=== PATIENT | male | born 1955 | race Caucasian/White ===

== ENCOUNTER → 2017-01-06 | Outpatient (CLI) | payer BC ==
--- NOTE | 2017-01-06 14:07 | Diagnostic Imaging Report ---
EXAMINATION: Bilateral 3 views of the knee. INDICATION: Knee pain. FINDINGS: There is severe joint space narrowing in the medial compartment bilaterally with associated prominent tricompartmental osteophytes. There is only mild joint space narrowing of the patellofemoral compartment. No significant narrowing of the lateral compartment is seen on either side. No acute fracture. No suprapatellar effusion on either side is seen. IMPRESSION: Bilateral moderate knee osteoarthritis, worse in the medial compartment on both sides. Dictated by: Dictated on workstation # [id number]
== END ==
LOC: RAD 10:26
PROVIDERS: ATTEND Internal Medicine
DX: M25.561 Pain in right knee (principal); M25.562 Pain in left knee

== ENCOUNTER 2018-03-31 19:07 | Emergency (ER) | payer OTHER, BC ==
[~2018-03-31] VITALS: Ht 193 cm; Wt 138.8 kg
[2018-03-31] MEDS ORDERED: LISI1TAB6 (20:21)
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
--- OUTSIDE RECORDS SUMMARY | 2018-03-31 20:42 | XMS REPORT ---
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
--- NOTE | 2018-03-31 21:29 | Diagnostic Imaging Report ---
INDICATION: None given. EXAMINATION: Single view of the chest was obtained. FINDINGS: Heart is slightly prominent. Pulmonary vasculature is unremarkable. Lungs are clear other than chronic appearing changes. No pneumothorax or effusions. IMPRESSION: Chronic change. No acute process. Dictated by: Dictated on workstation # [id number]
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
[2018-03-31] MEDS ORDERED: PRD20T PO (21:48)
[2018-03-31 22:04] VITALS: BP 135/80
== END 2018-03-31 22:04 | disposition home or self-care (01) ==
LOC: EDUNIT# 19:07 → ER 19:09
DX: R01.1 Cardiac murmur, unspecified (principal); R20.2 Paresthesia of skin; M50.30 Other cervical disc degeneration, unspecified cervical region; M51.36 Other intervertebral disc degeneration, lumbar region; I10 Essential (primary) hypertension; Z79.52 Long term (current) use of systemic steroids; Z90.89 Acquired absence of other organs; V49.40XA Driver injured in collision with unspecified motor vehicles in traffic accident, initial encounter
CPT/HCPCS: 70450; 71045; 72125; 72131

== ENCOUNTER → 2018-04-26 | Outpatient (CLI) | payer OTHER, BC ==
[~2018-04-26] MED LIST: LISI1TAB6; PRD20T PO
== END ==
LOC: CARD 08:55
PROVIDERS: ATTEND Internal Medicine
DX: R01.1 Cardiac murmur, unspecified (principal)
CPT/HCPCS: 93306